=== PATIENT | male | born 1975 | race Caucasian/White ===

== ENCOUNTER 2020-06-28 09:53 | Emergency (ER) | payer SELFPAY ==
[2020-06-28 10:02] VITALS: BP 138/88; PULSE 110; RESP 14; TEMP 35.9; O2SAT 98
--- NOTE | 2020-06-28 10:13 | ED.SKABFB ---
HPI - Skin/Abscess/Foreign Bdy General Chief complaint: Wound/Laceration Stated complaint: Bite Time Seen by Provider: 06/28/20 10:13 Source: patient and RN notes reviewed Mode of arrival: ambulatory Limitations: no limitations History of Present Illness HPI narrative: 44-year-old male presents concern for tender red area on his left thigh. Reports a similar instance 1-1/2 months ago for which he was prescribed doxycycline by a friend. Reports the area went away. Reports he noticed this area in a similar spot on his left thigh for the past 3 days. Reports it is tender, red. Denies any drainage, fever, muscle skeletal pain. MD complaint: abscess/boil Related Data Allergies Allergy/AdvReac Type Severity Reaction Status Date / Time No Known Allergies Allergy Verified 06/28/20 10:11 Review of Systems Review of Systems: Narrative: CONSTITUTIONAL: Denies malaise, chills, sweats, or fever. CARDIOVASCULAR: Denies chest pain, palpitations, or edema. RESPIRATORY: Denies cough or dyspnea. GASTROINTESTINAL: Denies abdominal pain, nausea, vomiting SKIN: Reports warm, red, tender area in the left foot MUSCULOSKELETAL: Denies muscle skeletal pain or myalgia. All systems reviewed & are unremarkable except as noted in HPI and below PMFSH Comments At time of signature, agree with nursing past medical, surgical, social and family history. There is no relevant family history pertinent to the presenting complaint Exam Narrative: Exam Narrative: GENERAL: Well-appearing, well-nourished, and in no acute distress. HEAD: Normocephalic EYES: PERRLA, conjunctivae clear ENT: Mucous membranes moist. NECK: Supple. CHEST: No respiratory distress. Clear to auscultation. No bony deformities, no asymmetry. Speaks in full sentences. HEART: Regular rate and rhythm. No murmur heard. EXTREMITIES: Left lower leg has grossly normal range of motion, no edema, grossly normal strength and sensation. SKIN: Warm, dry. 7 cm x 7 cm area of erythema, induration, tenderness without fluctuation noted to the left lateral thigh with a center scab, no drainage noted NEURO: Alert and oriented x3. PSYCH: Normal mood and affect Course Course Emergency Course: Patient is aware of diagnosis, understands and agrees to treatment plan. Anticipatory guidance given. Patient agrees to follow-up as directed and is aware of reasons to seek care at the emergency department. Portions of this record may have been created with voice recognition software Vital Signs Vital signs: Vital Signs Temperature 96.7 F L 06/28/20 10:02 Pulse Rate 110 H 06/28/20 10:02 Respiratory Rate 14 06/28/20 10:02 Blood Pressure 138/88 06/28/20 10:02 Pulse Oximetry 98 06/28/20 10:02 Temperature 96.7 F L 06/28/20 10:02 Pulse Rate 110 H 06/28/20 10:02 Respiratory Rate 14 06/28/20 10:02 Blood Pressure 138/88 06/28/20 10:02 Pulse Oximetry 98 06/28/20 10:02 Reviewed. MDM - Skin/Abscess/Foreign Bdy MDM Narrative Medical decision making narrative: Exam findings show no acute concerns or changes; patient is non-toxic appearing and is in no distress. Patient is appropriate for outpatient treatment and follow-up. Differential Diagnosis Differential diagnosis: Likely abscess of skin or subcutaneous tissue, cellulitis, insect bites and contact dermatitis Critical Care Time Critical Care Time Critical Care Time: No Discharge Plan Discharge Clinical Impression: Cellulitis and abscess of left leg Patient Disposition: Home, Self-Care Condition: Stable Instructions: Antibiotic Form, Abscess (ED) Additional Instructions: Please follow up with your Primary Care Doctor within 48-72 hours - call for an appointment. Rest and elevate affected area; apply moist heat 3-4 times daily for 10-15 minutes. Take Motrin 600mg every 8 hours with food for pain. Please take Antibiotics as directed. If you experience any worsening redness, swelling, streaking (red lines), fever or c
== END 2020-06-28 10:27 | disposition home or self-care (01) ==
PROVIDERS: Emergency Provider Nurse Practitioner
DX: L03.116 Cellulitis of left lower limb (principal); L02.416 Cutaneous abscess of left lower limb
CPT/HCPCS: 99203; G0463